=== PATIENT | female | born 1985 | race Asian ===

== ENCOUNTER 2017-08-25 07:30 | Inpatient (IN) | payer MEDICAID ==
[~2017-08-25] VITALS: Ht 160 cm; Wt 63.5 kg
[2017-08-25] MEDS: LR 1,000 ML IV SCH (03:00)
[2017-08-25] MEDS ORDERED: CEFAZOLIN 2 GM IVPB PREMIX 50 ML IV ONE (11:00)
[2017-08-25 11:40] LABS: HEMATOCRIT 31.1 % (36-48); HEMOGLOBIN 10.3 g/dL (12.0-16.0); MEAN CORPUSCULAR HEMOGLOBIN 29 pg (27-31); MEAN CORPUSCULAR HGB CONC 33 % (32-36); MEAN CORPUSCULAR VOLUME 87 fL (79.0-98.0); PLATELET COUNT (AUTO) 256 K/uL (130-430); RED BLOOD CELL COUNT(AUTO) 3.58 MIL/uL (4.2-6.2); RED CELL DISTRIBUTION WIDTH 12.2 % (9.0-15.0); WHITE BLOOD COUNT (AUTO) 5.4 K/uL (4.8-10.8)
[2017-08-25 12:08] VITALS: BP_SYST 119
[2017-08-25 12:12] LABS: BASOPHILS % (MANUAL) 0 % (0-2); EOSINOPHILS % (MANUAL) 0 % (0-7); LYMPHOCYTES % (MANUAL) 31 % (20-46); MONOCYTES % (MANUAL) 8 % (0-11)
[2017-08-25] MEDS ORDERED: OXYTOCIN/0.9 % SODIUM CHLORIDE 1,000 ML IV ONE (15:12)
[2017-08-25] MEDS ORDERED: MEASLES,MUMPS&RUBELLA VACC/PF 12500 UNIT/0.5 ML VIAL SUBQ PRN (15:15)
[2017-08-25] MEDS ORDERED: LANOLIN 7 GM OINT. TP PRN (15:15)
[2017-08-25] MEDS ORDERED: OXYCODONE/ACETAMINOPHEN 5-325 TABLET PO PRN ×2 (15:15)
[2017-08-25] MEDS ORDERED: ANUSOL 1 EA SUPP.RECT (PREPARATION H) RC PRN (15:15)
[2017-08-25] MEDS ORDERED: DEXAMETHASONE SOD PHOSPHATE 4 MG/ML VIAL ONE (16:20)
[2017-08-25] MEDS ORDERED: BUPIVACAINE /DEX PF 0.75% SPINAL 2 ML AMP INJ ONE (16:20)
[2017-08-25] MEDS ORDERED: OXYTOCIN 10 UNIT/ML VIAL ONE (16:20)
[2017-08-25] MEDS ORDERED: LR 1,000 ML IV.SOLN IV ONE (16:20)
[2017-08-25] MEDS ORDERED: ONDANSETRON HCL 4 MG/2 ML VIAL ONE (16:20)
[2017-08-25] MEDS ORDERED: fentaNYL CITRATE/PF 100 MCG/2 ML AMP ONE (16:20)
[2017-08-25] MEDS ORDERED: MEPERIDINE HCL/PF 50 MG/ML AMP ONE (16:20)
[2017-08-25 16:21] VITALS: BP_SYST 106
[2017-08-25] MEDS ORDERED: ONDANSETRON HCL 4 MG/2 ML VIAL IVP ONE (16:30)
[2017-08-25] MEDS ORDERED: MIDAZOLAM HCL 5 MG/5 ML VIAL IVP PRN (16:30)
[2017-08-25] MEDS ORDERED: HYDROmorphone 1 MG INJ. 1 MG/ML AMPUL IVP PRN (16:30)
[2017-08-25] MEDS ORDERED: NALOXONE HCL 0.4 MG/ML AMP (NARCAN) IVP ONE (16:30)
[2017-08-25] MEDS ORDERED: fentaNYL CITRATE/PF 100 MCG/2 ML AMP IVP PRN (16:30)
[2017-08-25] MEDS ORDERED: MEPERIDINE HCL/PF 25 MG/ML DISP.SYRIN IVP PRN (16:30)
[2017-08-25] MEDS ORDERED: TEMAZEPAM 15 MG CAPSULE PO PRN (21:00)
[2017-08-25] MEDS: CEFAZOLIN 1 GM IVPB PREMIX 50 ML IV SCH (21:00)
[2017-08-26] MEDS: CEFAZOLIN 1 GM IVPB PREMIX 50 ML IV SCH ×2 (03:00→09:18)
[2017-08-26] MEDS: LR 1,000 ML IV SCH (06:00)
[2017-08-26] MEDS: IBUPROFEN 600 MG TABLET PO SCH ×4 (06:01→23:34)
[2017-08-26 07:44] LABS: BASOPHILS % (AUTO) 0.3 % (0.0-2.0); EOSINOPHILS % (AUTO) 0.4 % (0.0-4.0); HEMOGLOBIN 9.6 g/dL (12.0-16.0); LYMPHOCYTES # (AUTO) 2.2 K/uL (1.0-5.5); LYMPHOCYTES % (AUTO) 20.8 % (20.5-51.5); MEAN CORPUSCULAR HEMOGLOBIN 29 pg (27-31); MEAN CORPUSCULAR HGB CONC 33 % (32-36); MEAN CORPUSCULAR VOLUME 88 fL (79.0-98.0); MONOCYTES # (AUTO) 0.9 K/uL (0.0-1.0); MONOCYTES % (AUTO) 8.2 % (1.7-9.3); NEUTROPHILS # (AUTO) 7.3 K/uL (1.8-7.7); NEUTROPHILS % (AUTO) 70.3 % (40.0-70.0); PLATELET COUNT (AUTO) 262 K/uL (130-430); RED CELL DISTRIBUTION WIDTH 12.3 % (9.0-15.0); WHITE BLOOD COUNT (AUTO) 10.4 K/uL (4.8-10.8)
[2017-08-26] MEDS: DOCUSATE SODIUM 100 MG CAPSULE PO PRN ×2 (11:49→22:30)
[2017-08-26] MEDS: HYDROcodone/ACETAMIN 5-325 MG TAB (NORCO/ VICODIN) PO PRN (16:28)
[2017-08-26] MEDS: SIMETHICONE 80 MG TAB.CHEW PO PRN (22:30)
[2017-08-27] MEDS: IBUPROFEN 600 MG TABLET PO SCH ×2 (06:01→11:30)
[2017-08-27] MEDS: DOCUSATE SODIUM 100 MG CAPSULE PO PRN ×2 (06:02→11:30)
[2017-08-27] MEDS: SIMETHICONE 80 MG TAB.CHEW PO PRN (06:02)
[2017-08-27] MEDS: HYDROcodone/ACETAMIN 5-325 MG TAB (NORCO/ VICODIN) PO PRN (11:31)
== END 2017-08-27 12:45 | disposition home or self-care (01) | DRG 540 ==
LOC: SPU 10:34
PROVIDERS: ADMIT Obstetrics & Gynecology; ATTEND Obstetrics & Gynecology
PROC: 10D00Z1 Extraction of Products of Conception, Low, Open Approach (ICD-10-PCS; principal; 2017-08-25 14:30)
DX: O32.1XX0 Maternal care for breech presentation, not applicable or unspecified (principal); Z37.0 Single live birth; Z3A.39 39 weeks gestation of pregnancy
CPT/HCPCS: 36415; 81002-TC; 85007; 85025; 85027; 86886; 86900; 86901; 94760; J0690; J1100; J2175; J2405; J2590; J3010; J3490; J7120